=== PATIENT | female | born 1950 | race African-American/Black ===

== ENCOUNTER 2019-07-28 21:48 | Emergency (ER) | payer OTHER ==
[2019-07-28 22:04] VITALS: BP 102/56; PULSE 90; TEMP 97; BMI 20.7
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
== END 2019-07-29 00:31 | disposition home or self-care (01) ==
LOC: JER 21:48
DX: R51 Headache (principal); M25.521 Pain in right elbow; V43.62XA Car passenger injured in collision with other type car in traffic accident, initial encounter; Y92.414 Local residential or business street as the place of occurrence of the external cause; Y93.89 Activity, other specified; Y99.8 Other external cause status; I10 Essential (primary) hypertension; Z86.69 Personal history of other diseases of the nervous system and sense organs
CPT/HCPCS: 73070-TC-RT-FY; 99281-25

== ENCOUNTER 2022-03-20 18:53 | Emergency (ER) | payer OTHER ==
[2022-03-20 19:06] VITALS: BP 150/89; PULSE 76; RESP 18; TEMP 98.6; BMI 21.2
[2022-03-20 20:59] LABS: BASO % 0.8 % (0-2.0); EOS % 1.5 % (0-4.5); HEMATOCRIT 35.1 % (32.4-45.2); LYMPH % 45.1 % (8-40); MCH 31.8 pg (25.7-33.7); MCHC 34.2 g/dl (32.0-36.0); MEAN CELL VOLUME 93.1 fl (80-96); MEAN PLT VOLUME 7.2 fl (7.5-11.1); NEUT % 43.6 % (42.8-82.8); PLATELET COUNT 353 10^3/uL (134-434); RBC 3.77 M/mm3 (3.60-5.2); RDW 14.1 % (11.6-15.6); WHITE BLOOD COUNT 3.9 K/mm3 (4.0-10.0)
[2022-03-20 21:11] LABS: INR 1.03 (0.83-1.09); PROTHROMBIN TIME (PATIENT) 11.8 SEC (9.7-13.0)
[2022-03-20 21:25] LABS: BLOOD UREA NITROGEN 16.5 mg/dL (7-18); CALCIUM 9.7 mg/dL (8.5-10.1)
[2022-03-20 21:26] LABS: ALBUMIN 3.8 g/dl (3.4-5.0)
[2022-03-20 21:29] LABS: CREATININE 0.9 mg/dL (0.55-1.3)
[2022-03-20 21:30] LABS: BILIRUBIN,TOTAL 0.4 mg/dL (0.2-1); TOT PROT 7.1 g/dl (6.4-8.2)
[2022-03-20 21:33] LABS: N-TERMINAL BNP 45.1 pg/ml (5-125)
== END 2022-03-20 23:28 | disposition home or self-care (01) ==
LOC: JER 18:53
DX: R06.02 Shortness of breath (principal)
CPT/HCPCS: 36415; 71045-TC-FY; 80053; 83880; 84484; 85025; 85379; 85610; 85730; 93005; 93010; 99285-25; C9803-CS; U0003; U0005

== ENCOUNTER 2022-03-29 01:27 | Observation (INO) | payer OTHER ==
[2022-03-29 01:47] VITALS: BMI 21.4
[2022-03-29 03:11] LABS: BASO % 0.6 % (0-2.0); EOS % 0.5 % (0-4.5); HEMATOCRIT 34.9 % (32.4-45.2); HEMOGLOBIN 11.9 GM/dL (10.7-15.3); LYMPH % 28.6 % (8-40); MCH 31.7 pg (25.7-33.7); MEAN CELL VOLUME 93.3 fl (80-96); MEAN PLT VOLUME 7.4 fl (7.5-11.1); MONO % 6.5 % (3.8-10.2); NEUT % 63.8 % (42.8-82.8); PLATELET COUNT 342 10^3/uL (134-434); RBC 3.74 M/mm3 (3.60-5.2); RDW 13.6 % (11.6-15.6); WHITE BLOOD COUNT 6.6 K/mm3 (4.0-10.0)
[2022-03-29 03:19] LABS: INR 1.04 (0.83-1.09)
[2022-03-29 03:21] LABS: ACTIVATED PTT 30.5 SECONDS (25.2-36.5)
[2022-03-29 03:31] LABS: CALCIUM 8.8 mg/dL (8.5-10.1)
[2022-03-29 03:33] LABS: ALBUMIN 3.8 g/dl (3.4-5.0); BLOOD UREA NITROGEN 14.6 mg/dL (7-18)
[2022-03-29 03:35] LABS: CREATININE 0.9 mg/dL (0.55-1.3)
[2022-03-29 03:36] LABS: BILIRUBIN,TOTAL 0.4 mg/dL (0.2-1); TOT PROT 6.9 g/dl (6.4-8.2)
[2022-03-29] MEDS ORDERED: DOCUSATE SODIUM 100 MG CAPSULE (FP) PO PRN (04:36)
[2022-03-29] MEDS ORDERED: ACETAMINOPHEN 325 MG TABLET (FP) PO PRN (04:36)
[2022-03-29 08:36] LABS: EPI CELLS 14 /uL (0-25.1); HYALINE CASTS 1 /uL (0-3.1); PH,URINE 6.5 (5.0-8.0); URINE APPEARANCE CLOUDY; URINE BACTERIA >9,000 /uL (0-1359); URINE BILIRUBIN NEGATIVE (NEGATIVE); URINE COLOR YELLOW; URINE GLUCOSE (UA) NEGATIVE (NEGATIVE); URINE KETONE TRACE (NEGATIVE); URINE LEUK ESTERASE TRACE (NEGATIVE); URINE NITRITE POSITIVE (NEGATIVE); URINE PROTEIN NEGATIVE (NEGATIVE); URINE RBC 9 /uL (0-23.9); URINE WBC 50 /uL (0-25.8)
[2022-03-29 11:57] VITALS: RESP 18
[2022-03-29] MEDS ORDERED: ACETAMINOPHEN 325 MG TABLET (FP) ONE (18:38)
[2022-03-30 06:38] VITALS: PULSE 61
[2022-03-30 08:22] LABS: BASO % 0.8 % (0-2.0); EOS % 1.8 % (0-4.5); HEMATOCRIT 34.9 % (32.4-45.2); HEMOGLOBIN 11.7 GM/dL (10.7-15.3); LYMPH % 52.5 % (8-40); MCH 30.9 pg (25.7-33.7); MCHC 33.5 g/dl (32.0-36.0); MEAN CELL VOLUME 92.2 fl (80-96); MEAN PLT VOLUME 8.3 fl (7.5-11.1); MONO % 11.7 % (3.8-10.2); NEUT % 33.2 % (42.8-82.8); PLATELET COUNT 351 10^3/uL (134-434); RBC 3.79 M/mm3 (3.60-5.2); RDW 13.5 % (11.6-15.6); WHITE BLOOD COUNT 3.4 K/mm3 (4.0-10.0)
[2022-03-30 08:36] LABS: BLOOD UREA NITROGEN 17.4 mg/dL (7-18)
[2022-03-30 08:38] LABS: CALCIUM 8.8 mg/dL (8.5-10.1)
[2022-03-30 08:42] LABS: CREATININE 0.8 mg/dL (0.55-1.3)
[2022-03-30 11:25] VITALS: BP 130/65; TEMP 98.3
== END 2022-03-30 15:32 | disposition home or self-care (01) ==
LOC: JER 01:27 → JERBED 04:14 → J4S 20:31
PROVIDERS: ADMIT Internal Medicine; ATTEND Internal Medicine
DX: R55 Syncope and collapse (principal); I10 Essential (primary) hypertension; J44.9 Chronic obstructive pulmonary disease, unspecified
CPT/HCPCS: 0241U-QW; 36415; 70450-TC; 71045-TC-FY; 80048; 80053; 81003; 82962; 83735; 84484; 85025; 85610; 85730; 87086; 93005; 93010; 97116-GP; 97162-GP; 99285-25; G0378